=== PATIENT | male | born 1970 ===

== ENCOUNTER 2024-11-29 22:03 | Emergency (ER) | payer OTHER ==
[2024-11-29] MEDS: methylPREDNISolone Sodium Succinate 125 MG/2 ML SDV IVPUSH ONE (22:17)
[2024-11-29] MEDS ORDERED: Sodium Chloride 0.9% 10 ML Syringe FLUSH PRN (22:18)
[2024-11-29] MEDS: Iopamidol 755 Mg/ML 100 ML Bottle IVPUSH STA (22:24)
[2024-11-29] MEDS: LORazepam 2 MG/ML SDV IVPUSH ONE (22:32)
[2024-11-29] MEDS: Albuterol/Ipratropium 3.0-0.5 MG/3 ML Neb Soln NEB ONE ×2 (22:33→22:52)
[2024-11-29 22:34] LABS: BASOPHILS ABSOLUTE AUTO 0.06 K/uL (0.00-0.20); BASOPHILS PERCENT AUTO 0.8 % (0.0-2.0); EOSINOPHILS ABSOLUTE AUTO 0.11 K/uL (0.00-0.50); EOSINOPHILS PERCENT AUTO 1.5 % (0.0-5.0); HEMATOCRIT 43.1 % (39.0-49.0); HEMOGLOBIN 13.9 g/dL (13.1-16.8); IMMATURE GRAN ABSOLUTE AUTO 0.01 10^3/uL (0.00-0.04); IMMATURE GRAN PERCENT AUTO 0.1 % (0.0-0.4); LYMPHOCYTES ABSOLUTE AUTO 1.14 K/uL (0.50-3.50); LYMPHOCYTES PERCENT AUTO 15.1 % (10.0-50.0); MEAN CORPUSCULAR HEMOGLOBIN 30.9 pg (28.2-33.3); MEAN CORPUSCULAR HGB CONC 32.3 g/dL (31.7-36.0); MEAN CORPUSCULAR VOLUME 95.8 fL (84.0-98.0); MONOCYTES ABSOLUTE AUTO 0.86 K/uL (0.00-1.00); MONOCYTES PERCENT AUTO 11.4 % (2.0-14.0); NEUTROPHILS ABSOLUTE AUTO 5.36 K/uL (1.40-7.00); NEUTROPHILS PERCENT AUTO 71.1 % (45.0-80.0); PLATELET COUNT,PLT 301 K/uL (150-350); RED CELL DISTRIBUTION WIDTH 13.9 % (11.2-14.1); WHITE BLOOD CELL COUNT,WBC 7.5 K/uL (4.0-10.2)
[2024-11-29 22:36] LABS: O2 DELIVERY DEVICE NASAL CANNULA
[2024-11-29] MEDS: Cefepime 2 GM Vial IVPUSH ONE (22:43)
[2024-11-29 22:49] LABS: BICARBONATE,VENOUS 27 mmol/L (23-28); O2 SATURATION VENOUS 100 %; PCO2 VENOUS 33 mmHG (41-51); PH,VENOUS 7.52 (7.31-7.41); PO2 VENOUS 182 mmHG
[2024-11-29 22:50] LABS: BASE EXCESS VENOUS 4 mmol/L ((-2)-3)
[2024-11-29] MEDS: LORazepam 2 MG/ML SDV IVPUSH STA (22:52)
[2024-11-29] MEDS: Magnesium Sulf/Wat 2 GM/50 mL 2 GM in Premix Bag 1 BAG IV ONE (22:55)
[2024-11-29 22:58] LABS: PROTHROMBIN TIME 10.1 SEC (9.0-11.1)
[2024-11-29 23:11] LABS: ANION GAP 9.5 meq/L (7-15); CARBON DIOXIDE,CO2 25.5 mmol/L (21.0-32.0); CHLORIDE,CL 105 mmol/L (98-107); POTASSIUM,K 4.3 mmol/L (3.5-5.1); SODIUM,NA 140 mmol/L (136-145)
[2024-11-29] MEDS ORDERED: Naloxone 0.4 MG/ML SDV IVPUSH PRN (23:23)
[2024-11-29] MEDS: Morphine 2 MG/ML SYRINGE IVPUSH ONE (23:26)
[2024-11-29 23:33] LABS: CORONAVIRUS COVID-19 NAA NEGATIVE (NEGATIVE); INFLUENZA A NAA NEGATIVE (NEGATIVE); INFLUENZA B NAA NEGATIVE (NEGATIVE); RESPIRATORY SYNCYTIAL VIR NAA POSITIVE (NEGATIVE)
[2024-11-29 23:33] LABS: GLUCOSE RANDOM 155 mg/dL (70-99)
[2024-11-29 23:34] LABS: ALANINE AMINOTRANSFERASE,ALT 43 U/L (12-78); ALBUMIN 3.5 g/dL (3.4-5.0); ASPARTATE AMNIOTRANSFERASE,AST 14 U/L (15-37); BLOOD UREA NITROGEN,BUN 14 mg/dL (7-18); CREATININE 0.97 mg/dL (0.51-1.17)
[2024-11-29 23:35] LABS: BILIRUBIN TOTAL 0.5 mg/dL (0.2-1.0); ESTIMATED GFR 93 mL/min (>=60)
[2024-11-29 23:38] LABS: ALKALINE PHOSPHATASE 115 IU/L (46-116); PROTEIN TOTAL,TP 6.9 g/dL (6.4-8.2)
[2024-11-29 23:41] LABS: PRO B-TYPE NATRIUR PEPT,BNPPRO 58 pg/mL (0-125)
[2024-11-29 23:42] LABS: CALCIUM 8.6 mg/dL (8.5-10.1)
[2024-11-29 23:43] LABS: MAGNESIUM 4.1 mg/dL (1.8-2.4)
== END 2024-11-30 00:30 ==
LOC: LL.ED 22:03
DX: J44.1 Chronic obstructive pulmonary disease with (acute) exacerbation (principal); I10 Essential (primary) hypertension; Z91.013 Allergy to seafood; Z87.891 Personal history of nicotine dependence
CPT/HCPCS: 0241U; 36415; 71275; 80053; 82803; 83605; 83735; 83880; 84484; 85025; 85379; 85610; 87040; 93005; 93010; 94640; 96365; 96375; 99284; 99285-25; A9270-GY; J0692; J2060; J2270; J2919; J3475; Q9967